=== PATIENT | female | born 1975 ===

== ENCOUNTER 2017-04-21 20:41 | Emergency (ER) | payer BC, MEDICAID ==
[2017-04-21 20:41] VITALS: BMI 23.4
[2017-04-21 20:47] VITALS: BP 111/62; PULSE 79; RESP 16; TEMP 97.8; O2SAT 100
[2017-04-21] MEDS ORDERED: Sodium Chloride 0.9% 1,000 ML IV STA (22:03)
--- NOTE | 2017-04-21 22:08 | ED PDOC ---
Arrival/HPI - General Chief Complaint: GI Problem Time Seen by Provider: 04/21/17 20:48 Historian: Patient - History of Present Illness Narrative History of Present Illness (Text): 04/21/17 22:07 Pt co dizziness for 3 days. Dizziness is constant but worse with walking and turning head. She reports spinning sensation. She reports headache that is constant. She has hx of headaches for many years. She reports vertigo episode last year similar to this. She did not take any medications this time. She reports left ear congestion and echo for last 3 days as well. 04/21/17 22:11 Symptom Course: Unchanged Quality: Pressure Past Medical History - Provider Review Nursing Documentation Reviewed: Yes - Travel History Have you recently traveled outside [place] w/in the past 3 mons?: Yes - Past History Past History: No Previous - Infectious Disease Hx of Infectious Diseases: None - Past Medical History Past Medical History: No Previous - Neurological Hx Migraine: Yes - Psychiatric Hx Substance Use: No - Surgical History Hx Appendectomy: Yes Hx Section: Yes - Anesthesia Hx Anesthesia: Yes Hx Anesthesia Reactions: No Family/Social History - Physician Review Nursing Documentation Reviewed: Yes Family/Social History: No Known Family HX Smoking Status: Never Smoked Hx Alcohol Use: No Hx Substance Use: No Allergies/Home Meds Allergies/Adverse Reactions: Allergies No Known Allergies Allergy (Verified 04/21/17 20:43) Physical Exam Vital Signs Reviewed: Yes Vital Signs Temp Pulse Resp BP Pulse Ox 04/21/17 20:44 97.8 F 79 16 111/62 100 Temperature: Afebrile Pulse: Regular Respiratory Rate: Normal Appearance: Positive for: Well-Appearing, Non-Toxic, Comfortable Pain Distress: Mild Mental Status: Positive for: Alert and Oriented X 3 - Systems Exam Head: Present: Atraumatic, Normocephalic Pupils: Present: PERRL Extroacular Muscles: Present: EOMI Conjunctiva: Present: Normal Mouth: Present: Moist Mucous Membranes Neck: Present: Normal Range of Motion Respiratory/Chest: Present: Clear to Auscultation, Good Air Exchange. No: Respiratory Distress, Accessory Muscle Use Cardiovascular: Present: Regular Rate and Rhythm. No: Murmurs Abdomen: No: Tenderness, Distention Upper Extremity: Present: Normal Inspection. No: Edema Lower Extremity: Present: Normal Inspection Neurological: Present: GCS=15, CN II-XII Intact, Speech Normal, Gait Normal Skin: Present: Warm, Dry, Normal Color. No: Rashes Psychiatric: Present: Alert, Oriented x 3 Medical Decision Making ED Course and Treatment: 04/21/17 22:10 MDM Vertigo and headache Diff include peripheral vertigo, central vertigo. Migraines. Plan CT head labs meclizine toradol reassess Re-evaluation Time: 00:30 Reassessment Condition: Re-examined, Improved - Lab Interpretations Lab Results: 04/21/17 22:12 04/21/17 22:12 Lab Results 04/21/17 22:12: WBC 7.7, RBC 4.60, Hgb 14.1, Hct 42.1, MCV 91.5, MCH 30.7, MCHC 33.6, RDW 13.0, Plt Count 198, MPV 9.4, Neut % (Auto) 58.3, Lymph % (Auto) 32.7 , Placer % (Auto) 7.8, Eos % (Auto) 0.9, Baso % (Auto) 0.3, Neut # 4.5, Lymph # 2.5, Placer # 0.6, Eos # 0.1, Baso # 0.0 04/21/17 22:12: Sodium 140, Potassium 5.0, Chloride 104, Carbon Dioxide 27, Anion Gap 14, BUN 16, Creatinine 0.7, Est GFR ( Amer) > 60, Est GFR (Non- Af Amer) > 60, Random Glucose 80, Calcium 8.9, Troponin I < 0.0120 - RAD Interpretation Radiology Orders: 04/21/17 22:00 HEAD W/O CONTRAST [CT] Stat - Medication Orders Current Medication Orders: Discontinued Medications Sodium Chloride (Sodium Chloride 0.9%) 1,000 mls @ 1,000 mls/hr IV .Q1H STA Stop: 04/21/17 23:02 Last Admin: 04/21/17 22:28 Dose: 1,000 mls/hr Ketorolac Tromethamine (Toradol) 30 mg IVP ONCE ONE Stop: 04/21/17 22:04 Last Admin: 04/21/17 22:29 Dose: 30 mg Ketorolac Tromethamine (Toradol) Confirm Administered Dose 30 mg .ROUTE .STK- MED ONE Stop: 04/21/17 22:24 Meclizine HCl (Antivert) 25 mg PO ONCE ONE Stop: 04/21/17 22:03 Last Admin: 04/21/17 22:29 Dose: 25 mg Meclizine HCl (Antivert) Confirm Administered Dose 25 mg PO .STK-MED ONE Stop: 04/21/17 22:24 Disposition/Present on Arrival - Present on Arrival Any Indicators Present on Arrival: No - Disposition Have Diagnosis and Disposition been Completed?: Yes Diagnosis: Vertigo Disposition: HOME/ ROUTINE Disposition Time: 00:46 Patient Plan: Discharge Patient Problems: Current Active Problems Problem Status Onset Vertigo Acute Condition: GOOD Discharge Instructions (ExitCare): Vertigo (ED) Print Language: TUVALU[place] Prescriptions: Ibuprofen [Motrin] 400 mg PO Q8 #20 tab Meclizine [Meclizine*] 25 mg PO TID PRN #30 tab PRN Reason: Dizziness Referrals: Kevin Stanley MD [Staff Provider] -
[2017-04-21 22:36] LABS: BASO % 0.3 % (0.0-2.0); EOS # 0.1 K/uL (0.0-0.7); EOS % 0.9 % (0.0-4.0); HEMOGLOBIN 14.1 g/dL (12.0-16.0); LYMPH # 2.5 K/uL (1.0-4.3); LYMPH % 32.7 % (20.0-40.0); MEAN CELL VOLUME 91.5 fl (81.0-99.0); MEAN CORPUSCULAR HEMOGLOBIN 30.7 pg (27.0-31.0); MEAN CORPUSCULAR HGB CONC 33.6 g/dL (33.0-37.0); MEAN PLATELET VOLUME 9.4 fl (7.2-11.7); MONO # 0.6 K/uL (0.0-0.8); MONO % 7.8 % (0.0-10.0); NEUT # 4.5 K/uL (1.8-7.0); NEUT % 58.3 % (50.0-75.0); NRBC % 0.2 % (0.0-0.0); RBC 4.6 Mil/uL (3.80-5.20); WHITE BLOOD COUNT 7.7 K/uL (4.8-10.8)
[2017-04-21 23:08] LABS: BLOOD UREA NITROGEN 16 mg/dl (7-17); CALCIUM 8.9 mg/dL (8.4-10.2); GFR AFRICAN-AMERICAN > 60; GFR NON-AFRICAN AMERICAN > 60
--- NOTE | 2017-04-22 00:10 | CT ---
EXAM: CT Head Without Intravenous Contrast CLINICAL HISTORY: 42 years old, female; Signs and symptoms; Dizziness TECHNIQUE: Axial computed tomography images of the head/brain without intravenous contrast. This CT exam was performed using one or more of the following dose reduction techniques: automated exposure control, adjustment of the mA and/or kV according to patient size, and/or use of iterative reconstruction technique. Coronal and sagittal reformatted images were created and reviewed. COMPARISON: CT - HEAD W/O CONTRAST 10/16/2015 12:45:13 PM FINDINGS: Brain: No acute intracranial hemorrhage. No significant white matter disease. No edema. Ventricles: No significant ventriculomegaly. Bones: No acute displaced fracture. Sinuses: Unremarkable as visualized. No acute sinusitis. Mastoid air cells: Unremarkable as visualized. No mastoid effusion. IMPRESSION: No acute intracranial hemorrhage, or suspicious mass effect.
--- NOTE | 2017-04-22 20:15 | CARD ---
APPROVED REPORT EKG Measurement Heart [id number] VT [id number] [id number] <Conclusion> Normal sinus rhythm Normal ECG
== END 2017-04-22 00:55 | disposition home or self-care (01) ==
LOC: H.ER 20:41
DX: R42 Dizziness and giddiness (principal); R11.10 Vomiting, unspecified

== ENCOUNTER 2017-07-26 16:25 | Emergency (ER) | payer MEDICAID ==
[2017-07-26 16:26] VITALS: BMI 23.4
[2017-07-26 16:35] VITALS: BP 114/69; PULSE 85; RESP 16; TEMP 97.2; O2SAT 98
[2017-07-26] MEDS ORDERED: Sodium Chloride 0.9% 1,000 ML IV STA (16:49)
--- NOTE | 2017-07-26 17:11 | ED PDOC ---
HPI: Back Time Seen by Provider: 07/26/17 16:38 Chief Complaint (Nursing): Female Genitourinary Chief Complaint (Provider): flank pain History Per: Patient History/Exam Limitations: no limitations Onset/Duration Of Symptoms: Days (x4) Current Symptoms Are (Timing): Still Present Additional Complaint(s): Johnnie Osorio is a 42 year old female who presents to the emergency department with a complaint of worsening right flank pain associated with urine frequency causing deeper ache, "hot" sensation, nausea and intermittent constipation ongoing for 4 days. Denied any burning urination, vomiting, vaginal bleeding or discharge. Patient stated she is due for menstrual period today and saw urologist once for hematuria but had no diagnosis after evaluation. PMD: Shady Gautam MD Past Medical History Reviewed: Historical Data, Nursing Documentation, Vital Signs Vital Signs: Last Vital Signs Temp 97.2 F L 07/26/17 16:32 Pulse 85 07/26/17 16:32 Resp 16 07/26/17 16:32 BP 114/69 07/26/17 16:32 Pulse Ox 98 07/26/17 16:32 - Medical History PMH: Migraine - Surgical History Surgical History: Appendectomy, (x2) - Family History Family History: States: Unknown Family Hx - Social History Current smoker - smoking cessation education provided: No Alcohol: None Drugs: Denies - Home Medications Home Medications: Ambulatory Orders Medication Instructions Recorded Ibuprofen [Motrin] 400 mg PO Q8 #20 tab 04/22/17 Meclizine [Meclizine*] 25 mg PO TID PRN #30 tab 04/22/17 Naproxen [Naprosyn] 1 tab PO BID PRN #30 tab 07/26/17 - Allergies Allergies/Adverse Reactions: Allergies Allergy/AdvReac Type Severity Reaction Status Date / Time No Known Allergies Allergy Verified 07/26/17 16:32 Review of Systems ROS Statement: Except As Marked, All Systems Reviewed And Found Negative (and as per HPI) Gastrointestinal: Positive for: Nausea, Constipation. Negative for: Vomiting Genitourinary Female: Positive for: Frequency. Negative for: Dysuria, Vaginal Discharge, Vaginal Bleeding Musculoskeletal: Positive for: Back Pain (right flank) Physical Exam - Reviewed Nursing Documentation Reviewed: Yes Vital Signs Reviewed: Yes - Physical Exam Appears: Positive for: Non-toxic, In Acute Distress Head Exam: Positive for: ATRAUMATIC, NORMOCEPHALIC Skin: Positive for: Warm, Dry Eye Exam: Positive for: EOMI, PERRL ENT: Positive for: Pharynx Is (clear) Neck: Positive for: Painless ROM, Supple Cardiovascular/Chest: Positive for: Regular Rate, Rhythm, Chest Non Tender. Negative for: Murmur Respiratory: Positive for: Normal Breath Sounds. Negative for: Wheezing Gastrointestinal/Abdominal: Positive for: Soft, Tenderness (suprapubic). Negative for: Mass, Distended, Guarding, Rebound Back: Positive for: R CVA Tenderness. Negative for: Vertebral Tenderness Extremity: Positive for: Normal ROM. Negative for: Deformity Lymphatic: Negative for: Adenopathy Neurologic/Psych: Positive for: Alert. Negative for: Motor/Sensory Deficits - Laboratory Results Result Diagrams: 07/26/17 17:20 07/26/17 17:20 - ECG O2 Sat by Pulse Oximetry: 98 (RA) Pulse Ox Interpretation: Normal Medical Decision Making Medical Decision Making: Initial Impression: Right flank pain Differential Diagnosis: Renal colic; renal cyst; pyelonephritis; UTI; Muscle strain Initial Plan: * CT ABD/pelvis without contrast * CMP * Lact acid, plasma * Urine * Urine dipstick * CBC * NS 1,000ml IV per 999mls/hr * Toradol 15mg IVP * Tylenol 975mg PO * Urine culture * Urinalysis Time: 171 --UA: small blood noted but otherwise negative. Time: 1811 --CT ABD/pelvis FINDINGS: LOWER THORAX: The lung bases are clear. LIVER: The liver is normal in size. No gross lesion or ductal dilatation. GALLBLADDER AND BILE DUCTS: Not visualized. PANCREAS: Normal in size. No gross lesion or ductal dilatation. SPLEEN: Normal in size. ADRENALS: No discrete nodule. KIDNEYS AND URETERS: Both kidneys are normal in size. No hydronephrosis. VASCULATURE: No aortic aneurysm. BOWEL: The small bowel loops are normal in caliber. There is large amount of stool in the colon. There is sigmoid diverticulosis without CT evidence for acute diverticulitis. No bowel dilatation or obstruction APPENDIX: Unremarkable. Normal appendix. PERITONEUM: No free fluid. No free air. LYMPH NODES: No enlarged lymph nodes. BLADDER: Unremarkable. REPRODUCTIVE: The uterus is normal in size. BONES: No acute fracture. OTHER FINDINGS: There are innumerable nodular densities in bilateral gluteal soft tissues which may represent injection granulomas, fat necrosis or less likely soft tissue tumors such as neurofibromatosis. IMPRESSION: --No evidence of nephrolithiasis or obstructive uropathy. --Constipation. No evidence of bowel obstruction. Sigmoid diverticulosis without CT evidence for acute diverticulitis. Labs unremarkable. DW pt findings and plan of care. Pt to follow up with Dr Gautam for further evaluation Scribe Attestation: Documented by Anel Dinh, acting as a scribe for Kayley Houston MD. Provider Scribe Attestation: All medical record entries made by the Scribe were at my direction and personally dictated by me. I have reviewed the chart and agree that the record accurately reflects my personal performance of the history, physical exam, medical decision making, and the department course for this patient. I have also personally directed, reviewed, and agree with the discharge instructions and disposition. Disposition - Clinical Impression Clinical Impression: Flank pain Counseled Patient/Family Regarding: Studies Performed, Diagnosis, Need For Followup, Rx Given - Disposition Referrals: Shady Gautam MD [Medical Doctor] - 07/27/17 Disposition: Routine/Home Disposition Time: 18:30 Condition: IMPROVED Prescriptions: Naproxen [Naprosyn] 1 tab PO BID PRN #30 tab PRN Reason: Pain Instructions: Flank Pain (ED) Forms: [facility] ED School/Work Excuse
[2017-07-26] MEDS ORDERED: DiphenhydrAMINE 50 mg/ml Inj ONE (17:22)
[2017-07-26 17:35] LABS: BASO % 0.4 % (0.0-2.0); EOS # 0.1 K/uL (0.0-0.7); EOS % 0.7 % (0.0-4.0); LYMPH # 2.6 K/uL (1.0-4.3); LYMPH % 34.5 % (20.0-40.0); MEAN CELL VOLUME 89.9 fl (81.0-99.0); MEAN CORPUSCULAR HEMOGLOBIN 30.7 pg (27.0-31.0); MEAN CORPUSCULAR HGB CONC 34.2 g/dL (33.0-37.0); MEAN PLATELET VOLUME 9.1 fl (7.2-11.7); MONO # 0.6 K/uL (0.0-0.8); MONO % 7.4 % (0.0-10.0); NEUT # 4.3 K/uL (1.8-7.0); NRBC % 0.1 % (0.0-0.0); RED CELL DISTRIBUTION WIDTH 12.8 % (11.5-14.5); WHITE BLOOD COUNT 7.5 K/uL (4.8-10.8)
[2017-07-26 17:41] LABS: GLUCOSE,RANDOM 97 mg/dL (65-105)
[2017-07-26 17:42] LABS: BLOOD UREA NITROGEN 18 mg/dl (7-17)
[2017-07-26 17:43] LABS: ALB/GLOB RATIO 1.4 (1.0-2.1); AST/SGOT 17 U/L (14-36); BILIRUBIN,TOTAL 0.1 mg/dl (0.2-1.3); CALCIUM 8.9 mg/dL (8.4-10.2); CARBON DIOXIDE 26 mmol/L (22-30); CHLORIDE 104 mmol/L (98-107); GFR AFRICAN-AMERICAN > 60; POTASSIUM 3.9 MMOL/L (3.6-5.0); SODIUM 139 mmol/l (132-148); TOTAL PROTEIN 7.3 G/DL (6.3-8.2)
[2017-07-26 17:44] LABS: ALKALINE PHOSPHATASE 59 U/L (38-126); ALT/SGPT 20 U/L (9-52)
[2017-07-26 18:00] LABS: RBC URINE 4 /hpf (0-3); URINE BACTERIA OCC (<OCC); URINE BILIRUBIN NEGATIVE (NEGATIVE); URINE BLOOD SMALL (NEGATIVE); URINE COLOR STRAW (YELLOW); URINE GLUCOSE (UA) NEG (Normal); URINE KETONE NEGATIVE (NEGATIVE); URINE LEUKOCYTE ESTERASE NEG Leu/uL (Negative); URINE PROTEIN NEGATIVE (NEGATIVE); URINE UROBILINOGEN 0.2-1.0 mg/dL (0.2-1.0); WBC URINE 1 /hpf (0-5)
--- NOTE | 2017-07-26 18:14 | CT ---
PROCEDURE: CT Abdomen and Pelvis without intravenous contrast HISTORY: Right flank pain COMPARISON: None. TECHNIQUE: CT scan of the abdomen and pelvis was performed without administration of intravenous contrast. Oral contrast was not administered. Coronal and sagittal reformatted images were obtained. Radiation dose: Total exam DLP = 727.56 mGy-cm. This CT exam was performed using one or more of the following dose reduction techniques: Automated exposure control, adjustment of the mA and/or kV according to patient size, and/or use of iterative reconstruction technique. FINDINGS: LOWER THORAX: The lung bases are clear. LIVER: The liver is normal in size. No gross lesion or ductal dilatation. GALLBLADDER AND BILE DUCTS: Not visualized. PANCREAS: Normal in size. No gross lesion or ductal dilatation. SPLEEN: Normal in size. ADRENALS: No discrete nodule. KIDNEYS AND URETERS: Both kidneys are normal in size. No hydronephrosis. VASCULATURE: No aortic aneurysm. BOWEL: The small bowel loops are normal in caliber. There is large amount of stool in the colon. There is sigmoid diverticulosis without CT evidence for acute diverticulitis. No bowel dilatation or obstruction APPENDIX: Unremarkable. Normal appendix. PERITONEUM: No free fluid. No free air. LYMPH NODES: No enlarged lymph nodes. BLADDER: Unremarkable. REPRODUCTIVE: The uterus is normal in size. BONES: No acute fracture. OTHER FINDINGS: There are innumerable nodular densities in bilateral gluteal soft tissues which may represent injection granulomas, fat necrosis or less likely soft tissue tumors such as neurofibromatosis. IMPRESSION: No evidence of nephrolithiasis or obstructive uropathy. Constipation. No evidence of bowel obstruction. Sigmoid diverticulosis without CT evidence for acute diverticulitis.
== END 2017-07-26 19:25 | disposition home or self-care (01) ==
LOC: H.ER 16:25
DX: K59.00 Constipation, unspecified (principal); K57.30 Diverticulosis of large intestine without perforation or abscess without bleeding
CPT/HCPCS: 74176; 80053; 81003; 81025; 83605; 85025; 87086; 96374; 99284; J1885; J7040

== ENCOUNTER 2017-12-26 09:09 | Emergency (ER) | payer BC, MEDICAID ==
[2017-12-26 09:15] VITALS: BMI 24.7
--- NOTE | 2017-12-26 10:45 | ED PDOC ---
HPI: Female Pain Time Seen by Provider: 12/26/17 09:49 Chief Complaint (Nursing): Female Genitourinary Chief Complaint (Provider): Female Genitourinary History Per: Patient History/Exam Limitations: no limitations Onset/Duration Of Symptoms: Hrs (x 4) Current Symptoms Are (Timing): Still Present Additional Complaint(s): Ms. Blair is a 42 year old female, with a history of , who presnts to ED complaining of suprapubic pain, dysuria, and difficulty urinating since 05: 00 today. Denies fever, vomiting or diarrhea. Patient states suprapubic pain radiates to back PMD: Provider TBD Past Medical History Reviewed: Historical Data, Nursing Documentation, Vital Signs Vital Signs: Last Vital Signs Temp 97 F L 12/26/17 09:14 Pulse 83 12/26/17 09:14 Resp BP 106/62 12/26/17 09:14 Pulse Ox 98 12/26/17 09:14 - Medical History PMH: Migraine - Surgical History Surgical History: Appendectomy, (x2) - Family History Family History: States: Unknown Family Hx - Social History Current smoker - smoking cessation education provided: No Alcohol: None Drugs: Denies - Immunization History Hx Tetanus Toxoid Vaccination: No Hx Influenza Vaccination: No Hx Pneumococcal Vaccination: No - Home Medications Home Medications: Ambulatory Orders Medication Instructions Recorded Ibuprofen [Motrin] 400 mg PO Q8 #20 tab 04/22/17 Meclizine [Meclizine*] 25 mg PO TID PRN #30 tab 04/22/17 Naproxen [Naprosyn] 1 tab PO BID PRN #30 tab 07/26/17 Nitrofurantoin Macrocrystals 100 mg PO BID #14 cap 12/26/17 [Macrobid] - Allergies Allergies/Adverse Reactions: Allergies Allergy/AdvReac Type Severity Reaction Status Date / Time No Known Allergies Allergy Verified 07/26/17 16:32 Review of Systems ROS Statement: Except As Marked, All Systems Reviewed And Found Negative Constitutional: Negative for: Fever Gastrointestinal: Positive for: Other (Suprapubic pain that radiates to back). Negative for: Vomiting, Diarrhea Genitourinary Female: Positive for: Dysuria, Other (Difficulty urinating) Physical Exam - Reviewed Nursing Documentation Reviewed: Yes Vital Signs Reviewed: Yes - Physical Exam Appears: Positive for: Non-toxic Head Exam: Positive for: ATRAUMATIC, NORMAL INSPECTION, NORMOCEPHALIC Skin: Positive for: Normal Color, Warm, Dry Eye Exam: Positive for: Normal appearance ENT: Positive for: Normal ENT Inspection Neck: Positive for: Normal Cardiovascular/Chest: Positive for: Regular Rate, Rhythm Respiratory: Positive for: Normal Breath Sounds. Negative for: Respiratory Distress Gastrointestinal/Abdominal: Positive for: Tenderness (Suprapubic area) Back: Positive for: Normal Inspection Extremity: Positive for: Normal ROM. Negative for: Deformity Neurologic/Psych: Positive for: Alert, Oriented (x 3) - Laboratory Results Result Diagrams: 12/26/17 10:45 12/26/17 10:45 - ECG O2 Sat by Pulse Oximetry: 98 (RA) Pulse Ox Interpretation: Normal Medical Decision Making Medical Decision Making: Time: 10:26 Plan: - CT Abdominal and Pelvis w/o PO or Contrast - CMP - CBC - Sodium Chloride 0.9% 1,000 ml IV 999 mls/hr - Toradol 30 mg IV ONCE - Zofran ODT 4 mg IV ONCE Time: 11:31 CT Abdominal and Pelvis w/o PO or Contrast FINDINGS: LOWER THORAX: Unremarkable. LIVER: Unremarkable. No gross lesion or ductal dilatation. GALLBLADDER AND BILE DUCTS: Unremarkable. PANCREAS: Unremarkable. No gross lesion or ductal dilatation. SPLEEN: Unremarkable. ADRENALS: Unremarkable. No mass. KIDNEYS AND URETERS: Unremarkable. No hydronephrosis. No solid mass. VASCULATURE: Unremarkable. No aortic aneurysm. BOWEL: Unremarkable. No obstruction. No gross mural thickening. APPENDIX: Not visualized. PERITONEUM: Unremarkable. No free fluid. No free air. LYMPH NODES: Unremarkable. No enlarged lymph nodes. BLADDER: Unremarkable. REPRODUCTIVE: Unremarkable. BONES: No acute fracture. OTHER FINDINGS: Diffuse gluteal soft tissue injection granulomas. IMPRESSION: No acute abdominal pelvic pathology. No urolithiasis or evidence of recently passed genitourinary calculus. Upon provider evaluation patient is medically stable, and requires no further treatment in the ED at this time. Patient will be discharged with Rx fo Macrobid. Counseling was provided and all questions were answered regarding diagnosis and need for follow up with PCP within 1-2 days. There is agreement to discharge plan. Return if symptoms persist or worsen. Scribe Attestation: Documented by Hugo Glaser, acting as a scribe for Antoine Crawford MD Provider Scribe Attestation: All medical record entries made by the Scribe were at my direction and personally dictated by me. I have reviewed the chart and agree that the record accurately reflects my personal performance of the history, physical exam, medical decision making, and the department course for this patient. I have also personally directed, reviewed, and agree with the discharge instructions and disposition. Disposition - Clinical Impression Clinical Impression: UTI (urinary tract infection) - Disposition Referrals: [facility] [Outside] [facility] [Outside] Condition: IMPROVED Additional Instructions: follow up with your primary doctor in 1-2 days return to the ED with any worsening or concerning symptoms Prescriptions: Nitrofurantoin Macrocrystals [Macrobid] 100 mg PO BID #14 cap Instructions: Urinary Tract Infection, Adult (DC) Forms: [employer] ([place]) Print Language: SRI LANKAN
[2017-12-26] MEDS: Sodium Chloride 0.9% 1,000 ML IV STA (10:49)
[2017-12-26 10:55] LABS: BASO # 0.1 K/uL (0.0-0.2); BASO % 0.5 % (0.0-2.0); EOS % 0.5 % (0.0-4.0); LYMPH # 2.3 K/uL (1.0-4.3); LYMPH % 21.4 % (20.0-40.0); MEAN CELL VOLUME 91.1 fl (81.0-99.0); MEAN CORPUSCULAR HEMOGLOBIN 31.1 pg (27.0-31.0); MEAN CORPUSCULAR HGB CONC 34.2 g/dL (33.0-37.0); MONO # 0.6 K/uL (0.0-0.8); NEUT # 7.7 K/uL (1.8-7.0); NEUT % 71.6 % (50.0-75.0); NRBC % 0.1 % (0.0-0.0); RBC 4.49 Mil/uL (3.80-5.20); RED CELL DISTRIBUTION WIDTH 12.8 % (11.5-14.5); WHITE BLOOD COUNT 10.7 K/uL (4.8-10.8)
[2017-12-26 11:12] LABS: ALB/GLOB RATIO 1.2 (1.0-2.1); ALT/SGPT 23 U/L (9-52); AST/SGOT 18 U/L (14-36); BLOOD UREA NITROGEN 14 mg/dl (7-17); CALCIUM 9.2 mg/dL (8.4-10.2); GFR AFRICAN-AMERICAN > 60; GFR NON-AFRICAN AMERICAN > 60
--- NOTE | 2017-12-26 11:33 | CT ---
PROCEDURE: CT Abdomen and Pelvis without intravenous contrast HISTORY: abd pain COMPARISON: None. TECHNIQUE: Contiguous images were obtained from the domes of the diaphragms to the upper thighs without the administration of intravenous contrast. Oral contrast was not administered. Radiation dose: Total exam DLP = 602.7 mGy-cm. This CT exam was performed using one or more of the following dose reduction techniques: Automated exposure control, adjustment of the mA and/or kV according to patient size, and/or use of iterative reconstruction technique. FINDINGS: LOWER THORAX: Unremarkable. LIVER: Unremarkable. No gross lesion or ductal dilatation. GALLBLADDER AND BILE DUCTS: Unremarkable. PANCREAS: Unremarkable. No gross lesion or ductal dilatation. SPLEEN: Unremarkable. ADRENALS: Unremarkable. No mass. KIDNEYS AND URETERS: Unremarkable. No hydronephrosis. No solid mass. VASCULATURE: Unremarkable. No aortic aneurysm. BOWEL: Unremarkable. No obstruction. No gross mural thickening. APPENDIX: Not visualized. PERITONEUM: Unremarkable. No free fluid. No free air. LYMPH NODES: Unremarkable. No enlarged lymph nodes. BLADDER: Unremarkable. REPRODUCTIVE: Unremarkable. BONES: No acute fracture. OTHER FINDINGS: Diffuse gluteal soft tissue injection granulomas. IMPRESSION: No acute abdominal pelvic pathology. No urolithiasis or evidence of recently passed genitourinary calculus.
[2017-12-26 15:50] LABS: SQUAMOUS EPITHIAL 4 /hpf (0-5); URINE BACTERIA RARE (<OCC); URINE BILIRUBIN NEGATIVE (NEGATIVE); URINE BLOOD LARGE (NEGATIVE); URINE CLARITY CLOUDY (Clear); URINE COLOR YELLOW (YELLOW); URINE GLUCOSE (UA) NEG (Normal); URINE LEUKOCYTE ESTERASE LARGE Leu/uL (Negative); URINE PROTEIN NEGATIVE (NEGATIVE); URINE UROBILINOGEN 0.2-1.0 mg/dL (0.2-1.0); WBC CLUMPS MOD /hpf
[2017-12-26] MEDS ORDERED: cefTRIAXone (Rocephin) 1 gm Inj ONE (16:46)
[2017-12-26 17:59] VITALS: BP 112/66; PULSE 77; RESP 16; TEMP 97.3; O2SAT 99
== END 2017-12-26 17:55 | disposition home or self-care (01) ==
LOC: H.ER 09:09
DX: N39.0 Urinary tract infection, site not specified (principal)
CPT/HCPCS: 74176; 80053; 81003; 81025; 85025; 87086; 87181; 96361; 96365; 96375; 99285; J0696; J1885; J7040

== ENCOUNTER 2018-04-08 16:31 | Emergency (ER) | payer OTHER, MEDICAID ==
[2018-04-08 16:31] VITALS: BMI 26.4
[2018-04-08 16:34] VITALS: BP 105/66; PULSE 85; RESP 16; TEMP 98.1; O2SAT 100
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
--- NOTE | 2018-04-09 12:43 | RAD ---
PROCEDURE: Cervical Spine Radiographs. HISTORY: Pain. COMPARISON: None. FINDINGS: BONES: Alignment maintained. No fracture. Dens Intact. DISC SPACES: Normal. SOFT TISSUES: Normal. No prevertebral soft tissue swelling. OTHER FINDINGS: None. IMPRESSION: Normal cervical spine radiographs. If symptoms persist, cross-sectional imaging should be obtained.
== END 2018-04-08 19:29 | disposition home or self-care (01) ==
LOC: H.ER 16:31
DX: S13.4XXA Sprain of ligaments of cervical spine, initial encounter (principal); V43.62XA Car passenger injured in collision with other type car in traffic accident, initial encounter; Y92.410 Unspecified street and highway as the place of occurrence of the external cause
CPT/HCPCS: 72040; 72100; 81025; 96372; 99284; J1885

== ENCOUNTER 2018-07-23 17:45 | Emergency (ER) | payer MEDICAID, OTHER ==
[2018-07-23 17:45] VITALS: BMI 26.4
[2018-07-23 17:58] VITALS: RESP 18; TEMP 98.3
[2018-07-23] MEDS ORDERED: DiphenhydrAMINE 50 mg/ml Inj IVP STA (18:49)
[2018-07-23] MEDS ORDERED: Sodium Chloride 0.9% 1,000 ML IV STA (18:49)
--- NOTE | 2018-07-23 18:56 | ED PDOC ---
HPI: Headache Time Seen by Provider: 07/23/18 18:16 Chief Complaint (Nursing): Headache History Per: Patient, [employer] Super[employer] (La[place] [phone]) Additional Complaint(s): Pt. states for the past week she's had b/l headache greater on the R side. States headache was gradual in onset and is intermittent. She was taking her Meclizine which has not provided any relief. Reports no hx of previous headaches. Also reports feeling nauseous. Denies vomiting, fever, antipyretic use, weakness, trauma, abd pain. Past Medical History Reviewed: Historical Data, Nursing Documentation, Vital Signs Vital Signs: Last Vital Signs Temp 98.3 F 07/23/18 17:54 Pulse 86 07/23/18 17:54 Resp 18 07/23/18 17:54 BP 124/71 07/23/18 17:54 Pulse Ox 99 07/23/18 17:54 - Medical History PMH: Migraine Denies: Chronic Kidney Disease - Surgical History Surgical History: Appendectomy, (x2) - Family History Family History: States: No Known Family Hx - Immunization History Hx Tetanus Toxoid Vaccination: No Hx Influenza Vaccination: No Hx Pneumococcal Vaccination: No - Home Medications Home Medications: Ambulatory Orders Medication Instructions Recorded Meclizine [Meclizine*] 25 mg PO Q6H 7 Days tab 03/08/18 diaZEpam [Valium] 2 mg PO Q12 PRN 3 Days tab 03/08/18 Acetaminophen [Tylenol 325mg tab] 650 mg PO Q4H #50 tab 04/08/18 Cyclobenzaprine [Cyclobenzaprine 10 mg PO TID #15 tab 04/08/18 HCl] Naproxen [Naprosyn] 500 mg PO BID PRN #20 tablet 04/08/18 - Allergies Allergies/Adverse Reactions: Allergies Allergy/AdvReac Type Severity Reaction Status Date / Time No Known Allergies Allergy Verified 03/05/18 17:15 Review of Systems ROS Statement: Except As Marked, All Systems Reviewed And Found Negative Gastrointestinal: Positive for: Nausea Neurological: Positive for: Headache Physical Exam - Physical Exam Appears: Positive for: Well, Non-toxic, No Acute Distress Head Exam: Positive for: ATRAUMATIC, NORMAL INSPECTION, NORMOCEPHALIC Skin: Positive for: Normal Color, Warm. Negative for: Rash Eye Exam: Positive for: Normal appearance Neck: Positive for: Normal, Painless ROM Cardiovascular/Chest: Positive for: Regular Rate, Rhythm Respiratory: Positive for: CNT, Normal Breath Sounds Gastrointestinal/Abdominal: Positive for: Normal Exam, Soft. Negative for: Tenderness Back: Positive for: Normal Inspection. Negative for: L CVA Tenderness, R CVA Tenderness Neurologic/Psych: Positive for: Alert, Oriented (x3). Negative for: Aphasia, Facial Droop - Laboratory Results Result Diagrams: 07/23/18 19:06 07/23/18 19:06 - ECG O2 Sat by Pulse Oximetry: 99 - Progress ED Course And Treament: Labs, CT head w/o contrast, reglan 10mg IV, benadryl 50mg IV, IV NS bolus x 1 ordered. Disposition - Clinical Impression Clinical Impression: Acute headache - Patient ED Disposition Is Patient to be Admitted: Transfer of Care (Signed out to Sherry [facility] pending CT results) - Disposition Disposition Time: 20:00 Condition: STABLE Instructions: Acute Headache (ED) Forms: [employer] (German)
[2018-07-23 19:19] LABS: BASO % 0.5 % (0.0-2.0); EOS % 0.4 % (0.0-4.0); HEMOGLOBIN 13.7 g/dL (12.0-16.0); LYMPH # 2.2 K/uL (1.0-4.3); LYMPH % 27.2 % (20.0-40.0); MEAN CELL VOLUME 92.9 fl (81.0-99.0); MEAN CORPUSCULAR HEMOGLOBIN 31.1 pg (27.0-31.0); MEAN CORPUSCULAR HGB CONC 33.5 g/dL (33.0-37.0); MEAN PLATELET VOLUME 8.5 fl (7.2-11.7); MONO # 0.5 K/uL (0.0-0.8); MONO % 6.4 % (0.0-10.0); NEUT # 5.4 K/uL (1.8-7.0); NEUT % 65.5 % (50.0-75.0); RBC 4.4 Mil/uL (3.80-5.20); WHITE BLOOD COUNT 8.2 K/uL (4.8-10.8)
[2018-07-23] MEDS ORDERED: DiphenhydrAMINE 50 mg/ml Inj ONE (19:22)
[2018-07-23 19:30] LABS: ALB/GLOB RATIO 1.3 (1.0-2.1); ALT/SGPT 22 U/L (9-52); AST/SGOT 19 U/L (14-36); BLOOD UREA NITROGEN 11 mg/dl (7-17); CALCIUM 9.1 mg/dL (8.4-10.2); GFR NON-AFRICAN AMERICAN > 60
[2018-07-23 20:42] VITALS: BP 130/89; PULSE 95; O2SAT 100
--- NOTE | 2018-07-23 21:07 | ED PDOC ---
- Laboratory Results Result Diagrams: 07/23/18 19:06 07/23/18 19:06 - ECG O2 Sat by Pulse Oximetry: 100 Pulse Ox Interpretation: Normal - Progress Re-evaluation Time: 20:42 (Pt reports no headache on re-evaluation) Condition: Improved Medical Decision Making Medical Decision Making: Head CT Impression: No acute intracranial abnormalities Disposition - Clinical Impression Clinical Impression: Acute headache - POA Present On Arrival: None - Disposition Referrals: Daniel Allen MD [Medical Doctor] - Disposition: Routine/Home Disposition Time: 21:07 Condition: GOOD Prescriptions: Metoclopramide HCl [Reglan] 10 mg PO Q8H PRN #20 tablet PRN Reason: Headache, nausea Instructions: Acute Headache (ED) Forms: [facility] (Belizean) Print Language: SOMALI
--- NOTE | 2018-07-24 12:29 | CT ---
Date of service: 07/23/2018 PROCEDURE: CT HEAD WITHOUT CONTRAST. HISTORY: headache COMPARISON: 04/21/2017 TECHNIQUE: Axial computed tomography images were obtained through the head/brain without intravenous contrast. Radiation dose: Total exam DLP = 800.3 mGy-cm. This CT exam was performed using one or more of the following dose reduction techniques: Automated exposure control, adjustment of the mA and/or kV according to patient size, and/or use of iterative reconstruction technique. FINDINGS: HEMORRHAGE: No intracranial hemorrhage. BRAIN: No mass effect or edema. No atrophy or chronic microvascular ischemic changes. VENTRICLES: Unremarkable. No hydrocephalus. CALVARIUM: Unremarkable. PARANASAL SINUSES: Unremarkable as visualized. No significant inflammatory changes. MASTOID AIR CELLS: Unremarkable as visualized. No inflammatory changes. OTHER FINDINGS: None. IMPRESSION: Normal CT of the Head. No intracranial mass, hemorrhage or evidence of acute infarct. The preliminary findings for this examination were reported by [facility] Radiology at 7:44 a.m. on 07/23/2018. There is concurrence of this report with the preliminary findings.
== END 2018-07-23 21:24 | disposition home or self-care (01) ==
LOC: H.ER 17:45
DX: R51 Headache (principal)
CPT/HCPCS: 70450; 80053; 81025; 85025; 96361; 96374; 96375; 99284; J1200; J2765; J7030